=== PATIENT | female | born 1995 | race Hispanic/Latino ===

== ENCOUNTER 2016-11-02 23:54 | Emergency (ER) | payer SELFPAY ==
[2016-11-03] MEDS ORDERED: Sodium Chloride 0.9% 1,000 ML IV STA (00:28)
--- NOTE | 2016-11-03 00:38 | ED PDOC ---
Arrival/HPI - General Historian: Patient - History of Present Illness Symptom Course: Intermittent Quality: Stabbing Severity Level: Moderate <Rachel Navarro - Last Filed: 11/03/16 01:31> <Kyleigh Ott - Last Filed: 11/03/16 03:55> - General Chief Complaint: Abdominal Pain Time Seen by Provider: 11/03/16 00:23 - History of Present Illness Narrative History of Present Illness (Text): 11/03/16 00:31 21yr old female presents today with left sided back pain radiating to left lower and upper abdomen. Patient states pain started suddenly yesterday afternoon and she took Motrin for pain and the pain went away. Patient states she had no pain throughout the day until about 9 PM when the pain came on suddenly again. Patient denies nausea vomiting diarrhea or constipation. Denies urinary symptoms. Denies vaginal bleeding or discharge. Denies fevers or chills. Pt denies cp or sob. no other complaints. (Rachel Navarro) Past Medical History - Provider Review Nursing Documentation Reviewed: Yes - Travel History Have you recently traveled outside [place] w/in the past 3 mons?: No - Tetanus Immunization Tetanus Immunization: Unknown - Psychiatric Hx Substance Use: No - Surgical History Hx Appendectomy: Yes - Anesthesia Hx Anesthesia: Yes Hx Anesthesia Reactions: No Hx Malignant Hyperthermia: No <Rachel Navarro - Last Filed: 11/03/16 01:31> Family/Social History - Physician Review Nursing Documentation Reviewed: Yes Family/Social History: Unknown Family HX Smoking Status: Never Smoked Hx Alcohol Use: No Hx Substance Use: No <Rachel Navarro - Last Filed: 11/03/16 01:31> Allergies/Home Meds <Rachel Navarro - Last Filed: 11/03/16 01:31> <Kyleigh Ott - Last Filed: 11/03/16 03:55> Allergies/Adverse Reactions: Allergies No Known Allergies Allergy (Verified 11/03/16 00:08) Review of Systems - Review of Systems Constitutional: absent: Fatigue, Fevers Respiratory: absent: SOB, Cough Cardiovascular: absent: Chest Pain, Palpitations Gastrointestinal: Abdominal Pain. absent: Constipation, Diarrhea, Nausea, Vomiting Genitourinary Female: absent: Dysuria, Frequency, Hematuria, Urine Output Changes, Vaginal Bleeding, Vaginal Discharge Musculoskeletal: Back Pain. absent: Neck Pain Skin: absent: Rash, Pruritis Neurological: absent: Headache, Dizziness Psychiatric: absent: Anxiety, Depression <Rachel Navarro - Last Filed: 11/03/16 01:31> Physical Exam Vital Signs Reviewed: Yes Temperature: Afebrile Blood Pressure: Normal Pulse: Regular Respiratory Rate: Normal Appearance: Positive for: Well-Appearing, Non-Toxic, Comfortable Pain Distress: None Mental Status: Positive for: Alert and Oriented X 3 - Systems Exam Head: Present: Atraumatic Neck: Present: Normal Range of Motion Respiratory/Chest: Present: Clear to Auscultation, Good Air Exchange. No: Respiratory Distress, Accessory Muscle Use Cardiovascular: Present: Regular Rate and Rhythm, Normal S1, S2. No: Murmurs Abdomen: Present: Tenderness (+ luq and llq abdominal tenderness), Normal Bowel Sounds, Guarding. No: Distention, Peritoneal Signs, Rebound Back: Present: Normal Inspection, Other (left flank tenderness. ). No: CVA Tenderness, Midline Tenderness Upper Extremity: Present: Normal Inspection Lower Extremity: Present: Normal Inspection Neurological: Present: GCS=15 Skin: Present: Warm, Dry, Normal Color. No: Rashes Psychiatric: Present: Alert, Oriented x 3 <Rachel Navarro - Last Filed: 11/03/16 01:31> Vital Signs Temp Pulse Resp BP Pulse Ox 11/03/16 03:20 97.9 F 67 18 115/64 100 11/03/16 00:08 98.4 F 88 16 130/95 H 95 Medical Decision Making <Rachel Navarro - Last Filed: 11/03/16 01:31> <Kyleigh Ott - Last Filed: 11/03/16 03:55> ED Course and Treatment: 11/03/16 00:46 Patient is nontoxic well appearing with stable vital signs presenting with back and abdominal pain CBC : wnl CMP: wnl Lipase: wnl Urinalysis + blood, + leukocytes Ultrasound:FINDINGS: The uterus measures 6 x 3 x 5 cm and is normal. The endometrium measures 7 mm. There is a 2 x 1.5 x 1.2 cm right ovarian cyst. The left ovary is normal. Color flow and doppler vascular waveforms were demonstrated to both ovaries. There is no significant free fluid. IMPRESSION: Right ovarian cyst. CT abd/pelvis; pending pt given toradol for pain. 11/03/16 01:49 case signed out to dr. ott pending CT results and re-evaluation and disposition. (Rachel Navarro) 11/03/16 02:00 Patient signed out to me by TETO Navarro. 11/03/16 03:40 CT Abdomen and Pelvis With Intravenous Contrast: Creator : Marsha Lo FINDINGS: The liver is normal. The spleen is normal. The pancreas is normal. Contracted gallbladder Mild fullness of the renal collecting systems. No perinephric stranding. The wall of the urinary bladder appears thickened at least partially due to underdistention. Concurrent cystitis cannot be excluded. Correlation with urinalysis could be performed if indicated. The right colon is distended with stool consistent with constipation. There is a small 1 x 1.4 cm right ovarian cyst. Appendectomy. IMPRESSION: Mild right-sided constipation. Small right ovarian cyst corresponding to that seen on the ultrasound. 11/03/16 03:42 Transvaginal Ultrasound: Creator : Marsha Lo FINDINGS: The uterus measures 6 x 3 x 5 cm and is normal. The endometrium measures 7 mm. There is a 2 x 1.5 x 1.2 cm right ovarian cyst. The left ovary is normal. Color flow and doppler vascular waveforms were demonstrated to both ovaries. There is no significant free fluid. IMPRESSION: Right ovarian cyst. 11/03/16 03:49 Patient with noted history. CT results showing collecting system fullness with possible cystitis; urine showing possible UTI; given L side low back pain in association with symptoms, will treat for urinary source - will d/c on abx and she will f/u in the medical clinic. (Kyleigh Ott) - Lab Interpretations Lab Results: 11/03/16 00:53 11/03/16 00:53 Lab Results 11/03/16 00:53: WBC 7.7, RBC 4.04, Hgb 11.8 L, Hct 34.0 L, MCV 84.2, MCH 29.2, MCHC 34.7, RDW 12.8, Plt Count 297, MPV 8.2, Gran % 32.3 L, Lymph % (Auto) 53.3 H, [place] % (Auto) 7.8 H, Eos % (Auto) 6.2 H, Baso % (Auto) 0.4, Gran # 2.50, Lymph # 4.1 H, [place] # 0.6, Eos # 0.5, Baso # 0.03 11/03/16 00:53: Sodium 143, Potassium 4.1, Chloride 105, Carbon Dioxide 25, Anion Gap 17, BUN 8, Creatinine 0.6, Est GFR ( Amer) > 60, Est GFR (Non- Af Amer) > 60, Random Glucose 91, Calcium 9.6, Total Bilirubin 0.4, AST 24, ALT 21, Alkaline Phosphatase 54, Total Protein 7.9, Albumin 4.5, Globulin 3.4, Albumin/Globulin Ratio 1.3, Lipase 111 11/03/16 00:53: Urine Color Straw, Urine Appearance Clear, Urine pH 7.0, Ur Specific [place] 1.010, Urine Protein Negative, Urine Glucose (UA) Negative, Urine Ketones Negative, Urine Blood Small H, Urine Nitrate Negative, Urine Bilirubin Negative, Urine Urobilinogen 0.2, Ur Leukocyte Esterase Small H, Urine RBC 0 - 2, Urine WBC 0 - 2, Ur Epithelial Cells 0 - 2, Urine HCG, Qual Negative - RAD Interpretation Radiology Orders: 11/03/16 00:28 TRANSVAGINAL [US] Stat 11/03/16 01:02 ABD & PELVIS IV CONTRAST ONLY [CT] Stat - Medication Orders Current Medication Orders: Discontinued Medications Sodium Chloride (Sodium Chloride 0.9%) 1,000 mls @ 999 mls/hr IV .Q1H1M STA Stop: 11/03/16 01:28 Last Admin: 11/03/16 00:58 Dose: 999 mls/hr eMAR Start Stop Document 11/03/16 00:58 OCS (Rec: 11/03/16 00:58 OCS [id number]) Intravenous Solution Start Date 11/03/16 Start Time 00:58 Ceftriaxone Sodium (Rocephin 1 Gram Ivpb) 1 gm in 100 mls @ 200 mls/hr IV ONCE STA PRN Reason: Protocol Stop: 11/03/16 03:44 Last Admin: 11/03/16 03:28 Dose: 200 mls/hr eMAR Start Stop Document 11/03/16 03:28 LISA (Rec: 11/03/16 03:29 LISA [id number]) Intravenous Solution Start Date 11/03/16 Start Time 03:29 Iohexol (Omnipaque 350 100 Ml) Confirm Administered Dose 350 mg .ROUTE .STK-MED ONE Stop: 11/03/16 02:16 Ketorolac Tromethamine (Toradol) 30 mg IVP STAT STA Stop: 11/03/16 01:16 Last Admin: 11/03/16 01:35 Dose: 30 mg [facility] Pain Assessment Document 11/03/16 01:35 OCS (Rec: 11/03/16 01:36 [id number]) Pain Reassessment Is this a pain reassessment? Yes Sleep Is patient sleeping during reassessment? No Presence of Pain Presence of Pain Yes Pain Scale Used Pain Scale Used Numeric Location Pain Location Body Site Abdomen IVP Administration Document 11/03/16 01:35 OCS (Rec: 11/03/16 01:36 [id number]) Charges for Administration # of IVP Administrations 1 Re-Assess: [facility] Pain Assessment Document 11/03/16 02:35 OCS (Rec: 11/03/16 02:46 [id number]) Pain Reassessment Is this a pain reassessment? Yes Sleep Is patient sleeping during reassessment? Yes Disposition/Present on Arrival - Present on Arrival Any Indicators Present on Arrival: No History of DVT/PE: No History of Uncontrolled Diabetes: No Urinary Catheter: No History of Decub. Ulcer: No History Surgical Site Infection Following: None <Rachel Navarro - Last Filed: 11/03/16 01:31> - Present on Arrival Any Indicators Present on Arrival: No - Disposition Have Diagnosis and Disposition been Completed?: Yes Disposition Time: 03:50 Patient Plan: Discharge <Kyleigh Ott - Last Filed: 11/03/16 03:55> - Disposition Diagnosis: Abdominal pain, Urinary tract infection, Constipation Disposition: HOME/ ROUTINE Condition: GOOD Discharge Instructions (ExitCare): Urinary Tract Infection in Women (ED), Constipation (ED), Acute Abdominal Pain (ED), High Fiber Diet (ED) Additional Instructions: Drink plenty of fluids. Take the antibiotics as prescribed. Follow up with the medical clinic. Return to the emergency department if any new concerning symptoms. Prescriptions: Nitrofurantoin Macrocrystals [Macrobid] 100 mg PO BID #14 cap Referrals: Boaz Lynn, [Primary Care Provider] - Follow up with primary Forms: [employer] (Croatian)
[2016-11-03 01:03] LABS: BASO # 0.03 K/mm3 (0.0-2.0); BASO % 0.4 % (0.0-3.0); EOS # 0.5 (0.0-0.7); EOS % 6.2 % (1.5-5.0); GRAN # 2.5 (1.4-6.5); GRAN % 32.3 % (50.0-68.0); LYMPH # 4.1 (1.2-3.4); LYMPH % 53.3 % (22.0-35.0); MEAN CELL VOLUME 84.2 fl (80.0-105.0); MEAN CORPUSCULAR HEMOGLOBIN 29.2 pg (25.0-35.0); MEAN CORPUSCULAR HGB CONC 34.7 g/dl (31.0-37.0); MEAN PLATELET VOLUME 8.2 fl (7.0-11.0); MONO # 0.6 (0.1-0.6); MONO % 7.8 % (1.0-6.0); RED CELL DISTRIBUTION WIDTH 12.8 % (11.5-14.5); URINE BILIRUBIN NEGATIVE (NEGATIVE); URINE BLOOD SMALL (NEGATIVE); URINE GLUCOSE (UA) NEGATIVE (NEGATIVE); URINE KETONE NEGATIVE (NEGATIVE); URINE LEUKOCYTE ESTERASE SMALL Leu/uL (NEGATIVE); URINE PROTEIN NEGATIVE mg/dL (<30 mg/dL); URINE UROBILINOGEN 0.2 E.U./dL (<1 E.U./dL); WHITE BLOOD COUNT 7.7 10^3/ul (4.5-11.0)
[2016-11-03 01:11] LABS: URINE APPEARANCE CLEAR (CLEAR); URINE COLOR STRAW (YELLOW)
[2016-11-03 01:16] LABS: URINE EPITHELIAL CELLS 0 - 2 /hpf (0-5); URINE RBC 0 - 2 /hpf (0-2); URINE WBC 0 - 2 /hpf (0-6)
[2016-11-03 01:17] LABS: ALB/GLOB RATIO 1.3 (1.1-1.8); ALKALINE PHOSPHATASE 54 U/L (38-126); ALT/SGPT 21 U/L (7-56); AST/SGOT 24 U/L (14-36); BILIRUBIN,TOTAL 0.4 mg/dL (0.2-1.3); BLOOD UREA NITROGEN 8 mg/dL (7-21); CALCIUM 9.6 mg/dL (8.4-10.5); CARBON DIOXIDE 25 mmol/L (21-33); CHLORIDE 105 mmol/L (98-107); GFR AFRICAN-AMERICAN > 60; GLUCOSE,RANDOM 91 mg/dL (70-110); LIPASE 111 U/L (23-300); POTASSIUM 4.1 mmol/L (3.6-5.0); SODIUM 143 mmol/L (132-148); TOTAL PROTEIN 7.9 g/dL (5.8-8.3)
--- NOTE | 2016-11-03 01:32 | US ---
EXAM: US Pelvis, Transvaginal EXAM DATE/TIME: 11/03/2016 12:28 AM CLINICAL HISTORY: 21 years old, female; Pain; Pelvic pain TECHNIQUE: Real-time transvaginal pelvic ultrasound (complete) with image documentation. Transvaginal imaging was used for better evaluation of the endometrium and adnexa. COMPARISON: No relevant prior studies available. FINDINGS: The uterus measures 6 x 3 x 5 cm and is normal. The endometrium measures 7 mm. There is a 2 x 1.5 x 1.2 cm right ovarian cyst. The left ovary is normal. Color flow and doppler vascular waveforms were demonstrated to both ovaries. There is no significant free fluid. IMPRESSION: Right ovarian cyst.
[2016-11-03] MEDS ORDERED: Iohexol 350 MG/100 ML VIAL ONE (02:15)
--- NOTE | 2016-11-03 02:59 | CT ---
EXAM: CT Abdomen and Pelvis With Intravenous Contrast EXAM DATE/TIME: 11/03/2016 1:02 AM CLINICAL HISTORY: 21 years old, female; Pain; Abdominal pain; Generalized; Prior surgery; Surgery type: Appendectomy; Additional info: Left sided abdominal pain TECHNIQUE: Axial computed tomography images of the abdomen and pelvis with intravenous contrast. All CT scans at this facility use one or more dose reduction techniques, viz.: automated exposure control; ma/kV adjustment per patient size (including targeted exams where dose is matched to indication; i.e. head); or iterative reconstruction technique. Coronal and sagittal reformatted images were created and reviewed. CONTRAST: 96 mL of OMNI 350 administered intravenously. COMPARISON: No relevant prior studies available. FINDINGS: The liver is normal. The spleen is normal. The pancreas is normal. Contracted gallbladder Mild fullness of the renal collecting systems. No perinephric stranding. The wall of the urinary bladder appears thickened at least partially due to underdistention. Concurrent cystitis cannot be excluded. Correlation with urinalysis could be performed if indicated. The right colon is distended with stool consistent with constipation. There is a small 1 x 1.4 cm right ovarian cyst. Appendectomy. IMPRESSION: Mild right-sided constipation. Small right ovarian cyst corresponding to that seen on the ultrasound.
[2016-11-03 03:22] VITALS: BP 115/64; PULSE 67; RESP 18; TEMP 97.9; O2SAT 100
[2016-11-03] MEDS: cefTRIAXone 1 gm 1 GM/100 ML BAG IV STA ×2 (03:28→04:05)
== END 2016-11-03 04:10 | disposition home or self-care (01) ==
LOC: ED 23:54
DX: N39.0 Urinary tract infection, site not specified (principal); K59.00 Constipation, unspecified; R10.9 Unspecified abdominal pain
CPT/HCPCS: 74177; 76830; 80053; 81001; 83690; 84703; 85025; 87086; 87181; 96374; 99284; J0696; J1885; J7040; Q9967

== ENCOUNTER 2016-12-24 13:26 | Emergency (ER) | payer SELFPAY ==
[2016-12-24 13:46] VITALS: RESP 18; TEMP 98.5
[2016-12-24 14:08] VITALS: BP 121/75; PULSE 86; O2SAT 98
--- NOTE | 2016-12-24 14:26 | ED PDOC ---
Arrival/HPI - General Chief Complaint: Abdominal Pain Time Seen by Provider: 12/24/16 14:11 Historian: Patient, Partner - History of Present Illness Narrative History of Present Illness (Text): 12/24/16 14:15 Rey Faustin is a 21 year old female, who presents to the emergency department complaining of lower abdominal pain since one day ago. Patient reports the pain became worse over the night and she could not sleep. She states pain has now resolved. She also notes taking the test 3 days ago and it came out positive. Additionally, she has some mild nausea. Patient denies dysuria, hematuria, headache, back pain, or other complaints. PMD: None Time/Duration: 24 hours Symptom Onset: Sudden Symptom Course: Unchanged Activities at Onset: Rest Context: Home Past Medical History - Provider Review Nursing Documentation Reviewed: Yes - Infectious Disease Hx of Infectious Diseases: None - Tetanus Immunization Tetanus Immunization: Unknown - Psychiatric Hx Substance Use: No - Surgical History Hx Appendectomy: Yes - Anesthesia Hx Anesthesia: Yes Hx Anesthesia Reactions: No Hx Malignant Hyperthermia: No Family/Social History - Physician Review Nursing Documentation Reviewed: Yes Family/Social History: Unknown Family HX Smoking Status: Never Smoked Hx Alcohol Use: No Hx Substance Use: No Allergies/Home Meds Allergies/Adverse Reactions: Allergies No Known Allergies Allergy (Verified 12/24/16 13:43) Home Medications: Home Meds Medication Instructions Recorded Confirmed No Known Home Med 12/24/16 12/24/16 Review of Systems - Review of Systems Constitutional: absent: Fevers Respiratory: absent: SOB Cardiovascular: absent: Chest Pain Gastrointestinal: Abdominal Pain (lower abdominal pain ), Nausea, Other ((+) home exam ) Genitourinary Female: absent: Dysuria, Frequency, Hematuria Musculoskeletal: absent: Back Pain Skin: absent: Rash Neurological: absent: Headache, Dizziness Endocrine: absent: Polyuria Hemo/Lymphatic: absent: Easy Bleeding Physical Exam - Physical Exam Narrative Physical Exam (Text): 12/24/16 Head: Atraumatic. Normocephalic. Eyes: PERRL. EOMI. Conjunctivae are not pale. ENT: Mucous membranes are moist and intact. Oropharynx is clear and symmetric. Neck: Supple. Full ROM. No JVD. No lymphadenopathy. Cardiovascular: Regular rate. Regular rhythm. No murmurs, rubs, or gallops. Distal pulses are 2+ and symmetric. Pulmonary/Chest: No evidence of respiratory distress. Clear to auscultation bilaterally. No wheezing, rales or rhonchi. Abdominal: Soft and non-distended. There is no tenderness. No rebound, guarding, or rigidity. No organomegaly. Good bowel sounds. Back: No CVA tenderness. Extremities: No edema. No cyanosis. No clubbing. No calf pain. Skin: Skin is warm and dry. No petechiae. No purpura. Neurological: Alert, awake, and oriented. Motor and sensory exam intact. Psychiatric: Good eye contact. Normal interaction, affect, and behavior. Vital Signs Reviewed: Yes Vital Signs Temp Pulse Resp BP Pulse Ox 12/24/16 14:08 86 18 121/75 98 12/24/16 13:44 98.5 F 99 H 18 122/85 100 Temperature: Afebrile Blood Pressure: Normal Pulse: Tachycardic Respiratory Rate: Normal Appearance: Positive for: Well-Appearing, Non-Toxic, Comfortable Pain Distress: None Mental Status: Positive for: Alert and Oriented X 3 Medical Decision Making ED Course and Treatment: 12/24/16 Impression: 21 year old with lower abdominal pain which has now resolved. No associated vaginal bleeding. Notes she took home test, which was positive. Differential Diagnosis included but are not limited to: vs. UTI vs. ovarian cyst Plan: -- Labs -- Urinalysis -- Reassess and disposition Progress Notes: Patient on exam with NO pain. No nausea. Well hydrated. BP controlled. Patient with no headache, no chest pain or sob. Denies dysuria or frequency. LMP was November 13. . As she is asymptomatic, she has been informed of her beta hcg results and ua preg results and will be discharged with instructions to follow-up with shank scourer. 12/24/16 15:37 - Lab Interpretations Lab Results: 12/24/16 14:30 12/24/16 14:30 Lab Results 12/24/16 14:30: Beta HCG, Quant 1115.80 H 12/24/16 14:30: Urine Color Light yellow, Urine Appearance Clear, Urine pH 7.0, Ur Specific [place] 1.010, Urine Protein Negative, Urine Glucose (UA) Negative, Urine Ketones Negative, Urine Blood Negative, Urine Nitrate Negative, Urine Bilirubin Negative, Urine Urobilinogen 0.2, Ur Leukocyte Esterase Negative, Urine HCG, Qual Positive 12/24/16 14:30: Sodium 137, Potassium 4.3, Chloride 107, Carbon Dioxide 24, Anion Gap 10, BUN 8, Creatinine 0.5 L, Est GFR ( Amer) > 60, Est GFR (Non -Af Amer) > 60, Random Glucose 85, Calcium 9.6, Total Bilirubin 0.6, AST 24, ALT 28, Alkaline Phosphatase 45, Total Protein 7.9, Albumin 4.3, Globulin 3.6, Albumin/Globulin Ratio 1.2 12/24/16 14:30: WBC 6.9, RBC 4.00, Hgb 11.8 L, Hct 34.0 L, MCV 85.0, MCH 29.5, MCHC 34.7, RDW 12.7, Plt Count 334, MPV 8.5, Gran % 51.9, Lymph % (Auto) 38.5 H , [place] % (Auto) 6.7 H, Eos % (Auto) 2.6, Baso % (Auto) 0.3, Gran # 3.55, Lymph # 2.6, [place] # 0.5, Eos # 0.2, Baso # 0.02 I have reviewed the lab results: Yes - Scribe Statement The provider has reviewed the documentation as recorded by the Lily Modi Provider Scribe Attestation: All medical record entries made by the Scribe were at my direction and personally dictated by me. I have reviewed the chart and agree that the record accurately reflects my personal performance of the history, physical exam, medical decision making, and the department course for this patient. I have also personally directed, reviewed, and agree with the discharge instructions and disposition. Disposition/Present on Arrival - Present on Arrival Any Indicators Present on Arrival: No History of DVT/PE: No History of Uncontrolled Diabetes: No Urinary Catheter: No History of Decub. Ulcer: No History Surgical Site Infection Following: None - Disposition Have Diagnosis and Disposition been Completed?: Yes Diagnosis: Disposition: HOME/ ROUTINE Disposition Time: 15:00 Patient Plan: Discharge Patient Problems: Current Active Problems Problem Status Onset Acute Condition: GOOD Discharge Instructions (ExitCare): (ED) Additional Instructions: Follow-up with an engineer sergeant. For any abdominal pain, any bleeding, any nausea or vomiting, any chest pain or shortness of breath, any urinary symptoms, any headaches, any persistent or worsening of any symptoms, get rechecked. Referrals: Pool Luciano DO [Staff Provider] - Follow up with primary Forms: [employer] (Kyrgyz)
[2016-12-24 14:41] LABS: BASO # 0.02 K/mm3 (0.0-2.0); BASO % 0.3 % (0.0-3.0); EOS # 0.2 (0.0-0.7); EOS % 2.6 % (1.5-5.0); GRAN # 3.55 (1.4-6.5); GRAN % 51.9 % (50.0-68.0); LYMPH # 2.6 (1.2-3.4); LYMPH % 38.5 % (22.0-35.0); MEAN CORPUSCULAR HEMOGLOBIN 29.5 pg (25.0-35.0); MEAN CORPUSCULAR HGB CONC 34.7 g/dl (31.0-37.0); MEAN PLATELET VOLUME 8.5 fl (7.0-11.0); MONO # 0.5 (0.1-0.6); MONO % 6.7 % (1.0-6.0); RED CELL DISTRIBUTION WIDTH 12.7 % (11.5-14.5); URINE BILIRUBIN NEGATIVE (NEGATIVE); URINE BLOOD NEGATIVE (NEGATIVE); URINE GLUCOSE (UA) NEGATIVE (NEGATIVE); URINE KETONE NEGATIVE (NEGATIVE); URINE LEUKOCYTE ESTERASE NEGATIVE Leu/uL (NEGATIVE); URINE PROTEIN NEGATIVE mg/dL (<30 mg/dL); URINE UROBILINOGEN 0.2 E.U./dL (<1 E.U./dL); WHITE BLOOD COUNT 6.9 10^3/ul (4.5-11.0)
[2016-12-24 14:44] LABS: URINE APPEARANCE CLEAR (CLEAR); URINE COLOR LIGHT YELLOW (YELLOW)
[2016-12-24 14:51] LABS: ALB/GLOB RATIO 1.2 (1.1-1.8); ALKALINE PHOSPHATASE 45 U/L (38-126); ALT/SGPT 28 U/L (7-56); AST/SGOT 24 U/L (14-36); BILIRUBIN,TOTAL 0.6 mg/dL (0.2-1.3); BLOOD UREA NITROGEN 8 mg/dL (7-21); CALCIUM 9.6 mg/dL (8.4-10.5); CARBON DIOXIDE 24 mmol/L (21-33); CHLORIDE 107 mmol/L (98-107); GFR AFRICAN-AMERICAN > 60; GLUCOSE,RANDOM 85 mg/dL (70-110); POTASSIUM 4.3 mmol/L (3.6-5.0); SODIUM 137 mmol/L (132-148); TOTAL PROTEIN 7.9 g/dL (5.8-8.3)
== END 2016-12-24 15:57 | disposition home or self-care (01) ==
LOC: ED 13:26
DX: O26.899 Other specified pregnancy related conditions, unspecified trimester (principal); R10.30 Lower abdominal pain, unspecified